=== PATIENT | female | born 1945 | race Caucasian/White ===

== ENCOUNTER 2017-09-29 06:35 | Day surgery (SDC) | payer MEDICARE, OTHER ==
[~2017-09-29] VITALS: Ht 165.1 cm; Wt 68.5 kg
[~2017-09-29 06:35] MED LIST: ACID CONTROL150 MG PO; ASPIR-LOW81 MG PO; BENZONATATE100 MG PO; CLOPIDOGREL75 MG PO; FLOMAX0.4 MG PO; FLONASE ALLERG9.9 ML NAS; GABAPENTIN300 MG PO; IBUPROFEN800 MG PO; IPRATROPIU0.2 MG/1 M INH; LISINOPRIL2.5 MG PO; LORATADINE10 M2 PO; METOPROLOL TART25 MG PO; MOTION SICKNESS50 M1 PO; MULTIVITAMINS1 EAC8 PO; NITROGLYCERIN0.4 MG SL; OMEPRAZOLE20 MG PO; PRAVACHOL40 MG PO; ULTRAM50 MG PO; VENTOLIN HFA18 GM INH; VITAMIN B122500 MCG PO
--- NOTE | 2017-09-29 10:35 | NUR ---
09/29/17 1035 April Wisdom 1023 PT ARRIVED IN PACU SLEEPY. NON-RESPONSIVE TO TACTILE/VERBAL STIMULI AT THIS TIME. O2 AT 6L VIA MASK WITH SATS 100%.
--- NOTE | 2017-09-29 11:21 | NUR ---
LE 1100: PT ARRIVES TO RM 4 ALERT AND AWAKE. PT DENIES NAUSEA BUT STATES 8/10 PAIN IN LOWER BACK. PT HAS LEGS BENT AGAINST BED TO HELP WITH PAIN. PT PROVIDED ICED WATER AND CRACKERS ON ARRIVAL. SCD'S IN PLACE, CALL LIGHT AT PT LEFT SIDE. PT SPOUSE IN ON ARRIVAL.
--- NOTE | 2017-09-29 11:38 | NUR ---
PT IS UP TO BS COMMODE AND VOIDS 200 ML PINK URINE AND TRANSFERS HERSELF BACK TO THE BED. PATIENT DOES THAT WELL. ICED WATER GIVEN AND CALL LIGHT W/IN REACH. ATTEMPT MADE TO CONTACT PATIENT'S SPOUSE.
[2017-09-29] MEDS ORDERED: BACTRIM DS TAB1 EACH PO (11:42)
--- NOTE | 2017-09-29 12:00 | NUR ---
PT IS UP TO BS COMMODE A 2ND TIME AND VOIDS SCANT AMOUNT OF PINK URINE AND TRANSFERS HERSELF BACK TO BED. SPOUSE IS @ THE BS.
--- NOTE | 2017-09-29 13:34 | NUR ---
LE 1130: PT STATES PAIN IN LOWER BACK. ULTRAM PROVIDED FOR PAIN RELIEF. PT REQUESTS TYLENOL IN COMBINATION WITH ULTRAM THAT WORKS BEST FOR HER. CONTACTED DR. HALLMAN PER PT REQUEST AND RECEIVED VO FOR TYLENOL. LE 1230: PT STILL VERY PAINFUL RATING PAIN 9/10. PT OFFERED WARM BLANKET AND HOT PACK TO APPLY TO LOWER BACK. PT STATES INTERVENTIONS NOT WORKING. LE 1245: DR HALLMAN CONTACTED FOR BREAKTHROUGH PAIN MEDICATION. DR. HALLMAN ORDERS HYDROMORPHONE IV NOW, AWARE OF PT'S ADVERSE REACTION TO NARCOTICS. PT IS WILLING TO "TAKE WHATEVER WILL HELP." LE 1330: PT TOLERATES IV HYDROMORPHONE WELL. NO N/V THUS FAR. PT RESTING IN BED WITH EYES CLOSED, RR EVEN AND UNLABORED SATING AT 96%. DR. HALLMAN TO COME TO PT ROOM AND DISCUSS NEXT STEPS.
--- NOTE | 2017-09-29 13:52 | NUR ---
PT SITTING IN BED-ALERT, ORIENTED AND SUPPORTED BY HER . PLEASANT COUPLE, FRIENDLY AND SEEMED PREPARED FOR TODAY. FEW QUESTIONS, DECLINED PRAYER. STATED, THEY HAVE ALREADY PRAYER THIS MORNING
--- NOTE | 2017-09-29 15:13 | NUR ---
PT UP TO BR WITH RN ASSIT. PT VOIDS 350 MLS RED URINE. PT STATES PAIN IS INTERMITTENT, BUT WORSE AFTER AMBULATING TO BR. PT BACK IN BED WITH SCD'S IN PLACE AND CALL LIGHT AT LEFT SIDE. SPOUSE REMAINS AT BEDSIDE.
--- NOTE | 2017-09-29 15:59 | NUR ---
PT STATES PAIN IN SUPRABUBIC AREA AND RIGHT FLANK. ICE PACK APPLIED. PT STATES ICE "FEELS GOOD." SPOUSE LEFT PT ROOM TO "NAP IN CAR." PT IVF RUNNING ON PUMP AT 75 MLS/HR PER DR ORDER. PT ALSO PROVIDED JELLO.
--- NOTE | 2017-09-29 16:21 | NUR ---
SPOKE WITH DR. HALLMAN REGARDING PT PAIN. PT STATES PAIN LEVEL 4/10 WITH ICE PRESSED FIRMLY AGAINST SUPRAPUBIC AREA. VORB ONE NORCO 5/325 MG PO NOW PER DR. HALLMAN. WILL CONTINUE TO MONITOR PT FOR NAUSEA AND VOMITING WITH ORAL NARCOTIC MEDICATION.
--- NOTE | 2017-09-30 18:20 | OR ---
[facility] [address], [place] [address] Signed DATE OF OPERATION: 09/29/2017 SURGEON: Gabriel Hallman MD PREOPERATIVE DIAGNOSES: 1. History of gross hematuria. 2. Right ureterolithiasis. NAMES OF PROCEDURES: 1. 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 2. Right flexible nephroureteroscopy. ANESTHESIA: General. ESTIMATED BLOOD LOSS: Minimal. COMPLICATIONS: None. SPECIMENS: None. DRAINS: None. INDICATIONS FOR PROCEDURE: Ms. Lomas is a very pleasant 71-year-old female who is well known to me. She recently underwent a gross hematuria evaluation and on cystoscopy was found to have active erosion of suture presumably used for a cystocele repair noted at the base of her bladder. Also on pelvic exam was noted a grade 2 to 3 rectocele along with active extrusion of mesh associated with a previous rectocele repair present on the posterior vaginal wall. Cystoscopy otherwise revealed no evidence of any suspicious masses, lesions, or stones. At that time, she had been scheduled to undergo a CAT scan, however, she was unable to do so at that time. One day later, she presented to the emergency department with flank pain and underwent a CT scan, which revealed a 3 mm and 4 mm mid right ureteral calculus with associated mild hydronephrosis. At the time that I saw her in clinic, she decided that she wanted to attempt a trial of passage for Electronically Signed By: GABRIEL HALLMAN MD 09/30/17 5640 PATIENT NAME: SHELBY LOMAS OPERATIVE REPORT DATE OF : 47 REPORT #: [id number] PHYSICIAN: GABRIEL HALLMAN MD PCP: FREEMAN HERNANDEZ MD REPORT IS CONFIDENTIAL AND NOT TO BE RELEASED WITHOUT AUTHORIZATION [facility] [address] [place] [address] Signed approximately a week and then be placed on the OR schedule to undergo definitive extraction. Her states today she felt as though she may have passed the stones around two or three days ago, however, she was not completely sure. She presents today to undergo diagnostic ureteroscopy with possible stone extraction. OPERATIVE FINDINGS: 1. Inspection of the external genitalia reveals the aforementioned exam findings. The patient has a grade 2-3 rectocele with obvious mesh extrusion on the posterior vaginal wall likely due to previous rectocele repair. 2. Diagnostic cystoscopy reveals no evidence of any suspicious bladder masses or lesions. There is a small amount of stone gravel noted in the dependent portion of the bladder. Also noted are two areas of obvious sutures from a previous repair that is protruding into the bladder lumen. One suture has a very small calcification on it. All of these findings were seen on previous cystoscopy. The patient has been referred to [facility] for definitive management of her pelvic floor repair complication. 3. Right retrograde pyelogram was performed on both ureters. 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 There are two ureteral orifices noted on the right side, both effluxing clear urine at the time of evaluation. Right retrograde pyelogram was performed on both ureters and each ureter revealed no evidence of any filling defect throughout the entire length of the ureter. Despite this finding, I chose to perform a diagnostic ureteroscopy on the laterally ureteral orifice, which corresponds to the inferior moiety of the right kidney. 4. Diagnostic right nephroureteroscopy revealed no evidence of any stones, lesions, or masses within the right renal pelvis, nor was there any evidence of stones in the ureter that drains lower moiety. I chose not to perform diagnostic ureteroscopy on the ureter draining the upper moiety due to the diminutive size of the ureter and as well as the fact that the retrograde pyelogram revealed no obvious evidence of filling defects. 5. There was no stent placed within either right ureter today due to the lack of stone extraction that was performed. DESCRIPTION OF PROCEDURE: After informed consent was obtained, the patient was taken back to the operating room. She was transferred [facility] to the operating room table, where general anesthesia was induced. She was placed in a dorsal lithotomy position and her genitalia prepped and draped in sterile fashion. Using a 30-degree lens on a 22-Syriac introducer, rigid cystoscope was inserted through the urethra into her bladder under direct visualization. Panendoscopic views of the bladder were then obtained. Please see above findings. I was able to note two right ureteral orifices, both effluxing clear urine at that time. A cone-tipped catheter was advanced into the bladder and right retrograde pyelogram was performed on each ureter. Please see above findings. I then inserted a 0.035 Sensor wire into the lateral ureteral orifice draining the inferior moiety of the right kidney. Once the Sensor wire was in adequate position, I Electronically Signed By: GABRIEL HALLMAN MD 09/30/17 0840 PATIENT NAME: SHELBY LOMAS OPERATIVE REPORT DATE OF : 47 REPORT #: [id number] PHYSICIAN: GABRIEL HALLMAN MD PCP: FREEMAN HERNANDEZ MD REPORT IS CONFIDENTIAL AND NOT TO BE RELEASED WITHOUT AUTHORIZATION [address] [address] Signed passed an 03/03 ureteral access sheath under fluoroscopic guidance. Right nephroureteroscopy was then performed. Please see above findings. I did not see any evidence of stones in the lower moiety kidney. The smaller diameter ureter draining the upper moiety did not show any filling defects during right retrograde pyelogram. Once I was completed with ureteroscopy, I was satisfied that the patient had successfully passed both of her stones. The patient's bladder was then emptied using the cystoscope and the procedure was then terminated. The patient tolerated the procedure well without any complication. She will now be transferred to the postanesthesia care unit in stable condition. DISPOSITION: Ms. Lomas will be discharged to home later today in the company of her . I discussed the details of today's procedure with her and answered all of his questions. She will be scheduled to see me back on October 30 for routine followup. She is also scheduled to see Dr. Hailey Pena at [facility] in December 2017 for evaluation and management of her complex mesh extrusion involving her previous anterior and posterior repairs. She will be sent home today with Bactrim Double Strength one tab p.o. b.i.d. for a total of 5 days. MD LORELEI Brown/EDITA /[id number] Copies: ~ Electronically Signed By: GABRIEL HALLMAN MD 09/30/17 1820 PATIENT NAME: SHELBY LOMAS OPERATIVE REPORT DATE OF : 47 REPORT #: [id number] PHYSICIAN: GABRIEL HALLMAN MD PCP: FREEMAN HERNANDEZ MD REPORT IS CONFIDENTIAL AND NOT TO BE RELEASED WITHOUT AUTHORIZATION
== END 2017-09-29 17:10 | disposition home or self-care (01) ==
LOC: OPS 06:35 → DS 06:35 → OPS 08:35
PROVIDERS: Urology
PROC: 0TJ98ZZ Inspection of Ureter, Via Natural or Artificial Opening Endoscopic (ICD-10-PCS; principal; 2017-09-29 08:35)
PROC: BT1DZZZ Fluoroscopy of Right Kidney, Ureter and Bladder (ICD-10-PCS; 2017-09-29 08:35)
DX: N20.1 Calculus of ureter (principal); R31.0 Gross hematuria; N81.6 Rectocele; Q62.5 Duplication of ureter; I25.10 Atherosclerotic heart disease of native coronary artery without angina pectoris; I25.2 Old myocardial infarction; I10 Essential (primary) hypertension; Z85.118 Personal history of other malignant neoplasm of bronchus and lung; Z87.442 Personal history of urinary calculi; Z88.0 Allergy status to penicillin; Z88.5 Allergy status to narcotic agent; Z79.82 Long term (current) use of aspirin; Z79.02 Long term (current) use of antithrombotics/antiplatelets; Z79.899 Other long term (current) drug therapy; Z95.5 Presence of coronary angioplasty implant and graft
CPT/HCPCS: 74450; J0330; J1100; J1170; J1956; J2250; J2405; J2704; J3010; J7120; Q9967

== ENCOUNTER 2017-10-14 08:32 | Observation (INO) | payer MEDICARE, OTHER ==
[~2017-10-14] VITALS: Ht 165.1 cm; Wt 68.5 kg
--- NOTE | ~2017-10-14 | OR ---
[facility] [address] [place] [address] [place] DATE OF OPERATION: 10/14/2017 SURGEON: Gabriel Hallman MD PREOPERATIVE DIAGNOSIS: Left ureterolithiasis. POSTOPERATIVE DIAGNOSIS: Left ureterolithiasis. PROCEDURES: 1. Diagnostic cystoscopy with left retrograde pyelogram. 2. Left flexible nephroureteroscopy with laser lithotripsy and basket extraction of stone fragments. 3. Insertion of indwelling left ureteral stent. ANESTHESIA: General. ESTIMATED BLOOD LOSS: 25 mL. COMPLICATIONS: None. SPECIMENS: Fragments of left ureteral calculus, sent to the lab for stone analysis. DRAINS: A 6 x 24 cm contour double-J ureteral stent inserted into the left ureter. INDICATIONS FOR PROCEDURE: Ms. Lomas is a very pleasant 71-year-old female, who is well known to me. I initially met her to evaluate her for gross hematuria. She underwent a negative cystoscopy. However, when she underwent her CAT scan, she was found to have 2 stones, 3 and 4 mm in a duplicated system on the right side. About 3 weeks ago, she underwent diagnostic ureteroscopy, which at the time revealed that she has successfully passed both stones. Approximately 1 week ago, the patient began experiencing lower abdominal pain as well as nausea. Throughout the week, her nausea worsened and her pain moved to her left flank. She presented to the emergency department in [place] early this morning PATIENT NAME: SHELBY LOMAS OPERATIVE REPORT DATE OF : 47 REPORT #: [id number] PHYSICIAN: GABRIEL HALLMAN MD PCP: FREEMAN HERNANDEZ MD REPORT IS CONFIDENTIAL AND NOT TO BE RELEASED WITHOUT AUTHORIZATION [facility] [address] [place], [place] [address] [place] with severe left-sided flank pain and projectile vomiting. She underwent a CAT scan, which revealed an approximately 6 mm obstructing left ureteropelvic junction calculus as well as some small stone fragments within the lower pole of the left kidney. She was transferred here to [facility], and was admitted for pain control, IV antibiotics and IV fluid and antiemetics. She has been n.p.o. all day and now presents to undergo definitive management of her obstructing 6 mm left ureteral calculus. FINDINGS: 1. On cystoscopy, there was no evidence of any suspicious masses, lesions, or stones. 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 Both right ureteral orifices are effluxing clear urine. The left ureteral orifice is noted to be effluxing bloody urine. 2. Left retrograde pyelogram was performed, which revealed a large filling defect in the area of the left ureteropelvic junction, consistent likely with the obstructing stone. There was evidence of mild calyceal blunting as well. 3. Left flexible nephroureteroscopy was performed, which revealed the obstructing stone in the left renal pelvis as well as some smaller stone fragments in the lower pole of the left kidney. The larger stone and the smaller stone fragments were broken apart and fragmented using a Holmium laser with a 270 micron fiber. The stones were fragmented with a [id number] amount of difficulty. After fragmentation, approximately 95% of the stone burden was extracted successfully using a Zero tip basket. 4. A 6 x 24 cm contour double-J ureteral stent was inserted into the left ureter under direct visualization at the end of the procedure. 5. Repeat left retrograde pyelogram at the end of the procedure revealed no evidence of any contrast extravasation as well as no obvious evidence of filling defects within the left renal pelvis. DESCRIPTION OF PROCEDURE: After informed consent was obtained, the patient was taken back to the operating room. [facility] operating room table, where general anesthesia was induced. She was placed in the dorsal lithotomy position and her genitalia prepped and draped in standard sterile fashion. Using a 30-degree lens on a 22-Ukrainian introducer, rigid cystoscope was inserted through the urethra and into her bladder under direct visualization. Panendoscopic views of the bladder were then obtained. Please see the findings. I inserted a 0.035 Sensor wire into the left ureteral orifice and up into the left collecting system. I confirmed placement of the wire via fluoroscopy. Over the wire, I passed an 03/03 ureteral access sheath into the left ureter. This was again performed under fluoroscopic guidance. A left retrograde pyelogram was performed through the sheath to confirm adequate placement of the sheath. I inserted a flexible ureteroscope through the sheath and into the left proximal ureter and left renal pelvis. Please see above findings. The obstructing stone at this point in time was found in the left renal pelvis. The 6 mm stone was fragmented using the PATIENT NAME: SHELBY LOMAS OPERATIVE REPORT DATE OF : 47 REPORT #: [id number] PHYSICIAN: GABRIEL HALLMAN MD PCP: FREEMAN HERNANDEZ MD REPORT IS CONFIDENTIAL AND NOT TO BE RELEASED WITHOUT AUTHORIZATION [address] [address] [place] Holmium laser and the fragments were extracted using a Zero tip basket. Also was able to fragment some smaller pieces of stone in the lower pole of the left kidney. Overall, approximately 95% of stone burden was successfully extracted. The flexible ureteroscope was removed, leaving a Sensor wire behind within the left renal pelvis. Prior to this, I performed a repeat retrograde pyelogram via the sheath to confirm no additional filling defects within the renal pelvis after stone extraction. Over the Sensor wire, I passed a 6 x 24 cm contour double-J ureteral stent into the left collecting system under direct vision. After I removed the Sensor wire, an adequate proximal coil was seen within the left renal pelvis along with an adequate distal coil within the bladder. The patient's bladder was then drained and the cystoscope was removed. The procedure was then terminated. The patient tolerated the procedure well without any complication. She will now be transferred to the postanesthesia care unit in stable condition. DISPOSITION: I plan to discuss the details of today's procedure with her and answered all of his questions. The patient will be sent back to the floor for postop pain control. Her diet will be advanced as tolerated. Once her pain is under control, she may be discharged to home either later this evening or early tomorrow morning. I have asked the patient to contact the clinic in the morning to schedule her postoperative appointment, which will include cystoscopy with left ureteral stent extraction. Her stones will ultimately be sent for stone analysis today and we will discuss those results as they return. MD LORELEI Brown/EDITA /[id number] Copies: ~ PATIENT NAME: SHELBY LOMAS OPERATIVE REPORT DATE OF : 47 REPORT #: [id number] PHYSICIAN: GABRIEL HALLMAN MD PCP: FREEMAN HERNANDEZ MD REPORT IS CONFIDENTIAL AND NOT TO BE RELEASED WITHOUT AUTHORIZATION
[~2017-10-14 08:32] MED LIST changes: +ALBUTEROL2.5 MG/3 M INH; -ASPIR-LOW81 MG PO; +BACTRIM DS TAB1 EACH PO; -FLONASE ALLERG9.9 ML NAS; -MOTION SICKNESS50 M1 PO; -MULTIVITAMINS1 EAC8 PO; -VENTOLIN HFA18 GM INH
--- NOTE | 2017-10-14 10:07 | NUR ---
PT TO FLOOR FROM [place] WITH JALIL. PT RATES PAIN 3/10 AND IS OK WITH THAT. STATES SHE HAD TORADOL IN [place] AND THAT WORKED WELL. PREFERS TO NOT TAKE NARCOTICS IT MAKES HER VOMIT. PT SITTING UP IN CHAIR.
--- NOTE | 2017-10-14 11:29 | NUR ---
WARM BLANKETS PROVIDED TO PATIENT PER REQUEST. ZOFRAN GIVEN FOR NAUSEA.
--- NOTE | 2017-10-14 13:30 | NUR ---
new hat placed in toilet to catch UA with next void. toradol given IV for 3-4/10 lower abdominal pain. NPO.
[2017-10-14] MEDS ORDERED: PERCOCET 5-3251 EACH PO (14:33)
[2017-10-14] MEDS ORDERED: VITAMIN B-12500 MCG PO (14:35)
[2017-10-14] MEDS ORDERED: IBUPROFEN400 MG PO (14:36)
[2017-10-14] MEDS ORDERED: TRIAMCINOLONE16.9 ML NAS (14:38)
[2017-10-14] MEDS ORDERED: MULTIVITAMINS1 EAC8 PO (15:34)
[2017-10-14] MEDS ORDERED: ASPIR-LOW81 MG PO (15:34)
[2017-10-14] MEDS ORDERED: FLONASE ALLERG9.9 ML NAS (15:35)
[2017-10-14] MEDS ORDERED: MOTION SICKNESS50 M1 PO (15:35)
[2017-10-14] MEDS ORDERED: TYLENOL EXTRA500 MG PO (15:38)
[2017-10-14] MEDS ORDERED: FOLIC ACID0.4 MG PO (15:38)
--- NOTE | 2017-10-14 15:39 | NUR ---
MED REC COMPLETE
--- NOTE | 2017-10-14 18:03 | NUR ---
PT OFF FLOOR FOR PROCEDURE WITH JULIO ESPINOZA.
--- NOTE | 2017-10-14 18:18 | NUR ---
PATIENT OFF FLOOR TO HAVE LITHOTRIPSY WITH DR HALLMAN AT 1800. LIKELY ABLE TO GO HOME TONIGHT IF WILLING. CAN STAY NIGHT AND D/C IN MORNING PER DR HALLMAN IF PATIENT WANTS TO. NS @ 125. INDEPENDENT IN ROOM.
--- NOTE | 2017-10-14 19:43 | NUR ---
RECEIVED REPORT FROM DAY SHIFT RN. PATIENT IS CURRENTLY IN SURGERY. IN THE ROOM. ALL QUESTIONS ANSWERED. NO NEEDS NOTED.
--- NOTE | 2017-10-14 20:32 | HP ---
[facility] [address], [place] [address] Signed ADMISSION DATE: 10/14/2017 CHIEF COMPLAINT: Severe left-sided flank pain with nausea, vomiting. HISTORY OF PRESENT ILLNESS: Ms. Lomas is a very pleasant 71-year-old female, who is well known to me. She has a history of AR, status post coronary stent placement in November 2016 (normal stress test in January 2018 per lining scrubber) and lung cancer status post radiation, who presented to the emergency department in a [place] with a 2 to 3-day history of severe nausea, vomiting, and lower abdominal pain. She just recently underwent right diagnostic ureteroscopy for 3 and 4 mm stone on the right side on September 29, 2017. Prior to that, she had undergone diagnostic cystoscopy for evaluation of gross hematuria. Early this morning, she underwent a CT scan, which revealed an approximately 6 mm left ureteropelvic junction calculus. She was assigned observation here at [facility] this morning for pain control and anti-medics. She has been n.p.o. for the past 36 hours. She is still actively taking her daily 81 mg of aspirin, however, she has been off Plavix now for over a month. She denies any active fevers, chills, or gross hematuria, however, she has had microscopic blood in her urine for the past few days. Her urinalysis was obtained on admission and does reveal trace leukocytes and large blood, but no obvious evidence of infection. PAST MEDICAL HISTORY: Significant for a history of lung cancer, hypertension, coronary artery disease with a history of AR, nephrolithiasis, and pelvic organ prolapse. SURGICAL HISTORY: She had a tubal ligation in 1973, oral surgery in 1973, hysterectomy in 1974, sinus surgery in 2001, cholecystectomy in 1984, prolapse repair with mesh in February 2008, a cardiac stent placed in 2009, and a drug-eluting cardiac stent placed in November 2016. MEDICATIONS: She takes aspirin 81 mg p.o. daily, ranitidine 150 mg b.i.d., lisinopril 2.5 mg daily, pravastatin 40 mg daily, omeprazole 20 mg daily, gabapentin 300 mg at bedtime, metoprolol 25 mg twice a day, vitamin B12 500 mcg two tablets once a day, folate 400 mcg one tablet daily, loratadine 10 mg daily, dimenhydrinate 50 mg q.6 hours p.r.n., nitroglycerin 0.4 mg sublingual p.r.n. chest pain, tramadol 50 mg q.6 hours p.r.n. pain, benzonatate 100 mg 3 times a day p.r.n. Her Plavix 75 mg daily has been held for approximately a month. Electronically Signed By: GABRIEL HALLMAN MD 10/14/172031 PATIENT NAME: SHELBY LOMAS HISTORY AND PHYSICAL DATE OF : 47 REPORT #: [id number] PHYSICIAN: GABRIEL HALLMAN MD PCP: FREEMAN HERNANDEZ MD REPORT IS CONFIDENTIAL AND NOT TO BE RELEASED WITHOUT AUTHORIZATION [address] [address] Signed ALLERGIES: She is allergic to penicillins and experiences adverse effects such as nausea, vomiting with narcotics. FAMILY HISTORY: Significant for diabetes, heart disease, stroke. Her father of colon cancer at age 70. Mother after 3 open-heart surgeries. Her son in from a traumatic event. Her son has a history of kidney stones. SOCIAL HISTORY: She is actively . She denies any alcohol or tobacco use. REVIEW OF SYSTEMS: Positive today for nausea, vomiting, lightheadedness, abdominal pain, and left-sided flank pain, and is negative for fevers, chills, gross hematuria, and chest pain. PHYSICAL EXAMINATION: VITAL SIGNS: Current temperature is 98.2 degrees Fahrenheit, pulse is 85, respirations 16, blood pressure is 113 to 151 over 55 to 64. GENERAL: She is in no acute distress. She is alert and oriented, and answered all questions appropriately. CARDIOVASCULAR: Reveals a regular rate and rhythm. LUNGS: Clear to auscultation. ABDOMEN: Soft and nondistended. She has some mild tenderness to palpation in the left lower groin as well as left flank. EXTREMITIES: She is moving all of her extremities equally. LABORATORY DATA: White blood cell count 10.8, hemoglobin 12.9, hematocrit 37.8, and platelets 258. She has 81.3 neutrophils. Her sodium is 141, potassium 3.5, CO2 of 26, chloride 105, creatinine 1.06, GFR 51, calcium 9.2. Urinalysis reveals a specific gravity 1.017, 30 protein, trace ketones, large blood, negative nitrite, negative bilirubin, trace leukocyte esterase, greater than 50 red blood cells per high-power field, and 15 white blood cells per high-power field, negative urine crystals, rare urine bacteria, negative urine casts. ASSESSMENT: Severe left-sided flank pain, nausea, vomiting, secondary to an obstructing 6 mm left ureteral calculus. PLAN: The patient has been assigned observation, since this morning has been given IV fluids Electronically Signed By: GABRIEL HALLMAN MD 10/14/172031 PATIENT NAME: SHELBY LOMAS HISTORY AND PHYSICAL DATE OF : 47 REPORT #: [id number] PHYSICIAN: GABRIEL HALLMAN MD PCP: FREEMAN HERNANDEZ MD REPORT IS CONFIDENTIAL AND NOT TO BE RELEASED WITHOUT AUTHORIZATION [address] [place] [address] Signed as well as IV Rocephin 1 g and along with pain control and antiemetics as needed. Again, she has been n.p.o. for around 36 hours now. The plan is to take the patient to the operating room to undergo left ureteroscopy, laser lithotripsy, basket extraction of stones along with a left ureteral stent insertion. She understands the risks and benefits of the procedure and has agreed to proceed. She also understands that if I am unable to get up into her ureter this evening that she may have to return next week to undergo definitive stone extraction. MD LORELEI Brown/EDITA /[id number] Copies: ~ Electronically Signed By: GABRIEL HALLMAN MD 10/14/172031 PATIENT NAME: SHELBY LOMAS HISTORY AND PHYSICAL DATE OF : 47 REPORT #: [id number] PHYSICIAN: GABRIEL HALLMAN MD PCP: FREEMAN HERNANDEZ MD REPORT IS CONFIDENTIAL AND NOT TO BE RELEASED WITHOUT AUTHORIZATION
--- NOTE | 2017-10-14 20:33 | NUR ---
10/14/172032 Lizzy Espinoza PATIENT REPORTS "A LITTLE" WHEN ASKED IF SHE IS HAVING PAIN. PATIENT SHAKES HER HEAD YES WHEN ASKED IF SHE WOULD LIKE A PRN FOR PAIN.
--- NOTE | 2017-10-14 21:50 | NUR ---
PATIENT ARRIVED TO THE FLOOR VIA STRETCHER AROUND 2119. VITALS TAKEN AND RECORDED. PATIENT ASSISTED TO THE RESTROOM A SBA. PATIENT WAS ABLE TO VOID. PATIENT RATES PAIN AT A 2/10. PATIENT DENIES THE NEED FOR PAIN MEDICATION AT THIS TIME. PATIENT REQUESTED SOMETHING TO EAT. PATIENT GIVEN BROTH. PATIENT TITRATED TO ROOM AIR PATIENT IS 100% ON 2L VIA NC. PATIENTS IV FLUID ARE INFUSING. PATIENTS EVENING MEDICATIONS GIVEN PER ORDER. PATIENT DENIES ANY FURTHER NEEDS AT THIS TIME. CALL LIGHT IN REACH.
--- NOTE | 2017-10-14 22:17 | NUR ---
PLACED CALL TO DR HALLMAN. RECEIVED VERBAL ORDER FOR TAKE HOME PACK FOR PAIN MEDICATION PHARMACY IS CLOSED AND PATIENT IS SET TO DISCHARGE.
--- NOTE | 2017-10-14 22:37 | NUR ---
PATIENTS IV DC'D. DISCHARGE INSTRUCTIONS COMPLETED. ALL QUESTIONS ANSWERED. PATIENT GIVEN TAKE HOME PACK OF PRN PAIN MEDICATION, AND INSTRUCTIONS GIVEN AND ALL QUESTIONS ANSWERED ABOUT PAIN MEDICATION. PRESCRIPTION GIVEN TO PATIENTS . NO FURTHER QUESTIONS AT THIS TIME. NO COMMENTS, QUESTIONS OR CONCERNS AT THIS TIME. PATIENT LEFT FLOOR IN WHEEL CHAIR WITH COMPUTER FORWARDING SYSTEM MARKUP CLERK.
== END 2017-10-14 22:55 | disposition home or self-care (01) ==
LOC: MS 08:32
PROVIDERS: ADMIT Urology
PROC: 0T778DZ Dilation of Left Ureter with Intraluminal Device, Via Natural or Artificial Opening Endoscopic (ICD-10-PCS; principal; 2017-10-14 18:30)
PROC: 0TC78ZZ Extirpation of Matter from Left Ureter, Via Natural or Artificial Opening Endoscopic (ICD-10-PCS; 2017-10-14 18:30)
PROC: 0TC18ZZ Extirpation of Matter from Left Kidney, Via Natural or Artificial Opening Endoscopic (ICD-10-PCS; 2017-10-14 18:30)
DX: N20.2 Calculus of kidney with calculus of ureter (principal); I10 Essential (primary) hypertension; I25.2 Old myocardial infarction; J44.9 Chronic obstructive pulmonary disease, unspecified; G89.29 Other chronic pain; K21.9 Gastro-esophageal reflux disease without esophagitis; Z95.5 Presence of coronary angioplasty implant and graft; Z85.118 Personal history of other malignant neoplasm of bronchus and lung; Z92.3 Personal history of irradiation; Z87.442 Personal history of urinary calculi; Z79.82 Long term (current) use of aspirin; Z79.891 Long term (current) use of opiate analgesic; Z79.899 Other long term (current) drug therapy; Z88.5 Allergy status to narcotic agent; Z88.0 Allergy status to penicillin; Z99.81 Dependence on supplemental oxygen
CPT/HCPCS: 36415; 74420; 80048; 81001; 82365; 85025; 96374; 96375; C2617; G0378; J0330; J0696; J1100; J1885; J2250; J2405; J2704; J2765; J3010; J7030; J7120; Q9967